=== PATIENT | female | born 1975 | race Caucasian/White ===

== ENCOUNTER 2018-04-06 12:15 | Observation (INO) | payer OTHER ==
[~2018-04-06] VITALS: Ht 165.1 cm; Wt 83.6 kg
[2018-04-06 12:39] VITALS: BP 156/100
[2018-04-06 12:55] LABS: BASOPHILS # (AUTO) 0.04 x10^3/uL (0-0.1); BASOPHILS % (AUTO) 0 % (0-1); EOSINOPHILS # (AUTO) 0.15 x10^3/uL (0-0.4); EOSINOPHILS % (AUTO) 1 % (1-7); LYMPHOCYTES # (AUTO) 1.59 x10^3/uL (1-3.4); LYMPHOCYTES % (AUTO) 14 % (22-44); MD NO; MEAN CORPUSCULAR HEMOGLOBIN 30.5 pg (27.0-34.8); MEAN CORPUSCULAR HGB CONC 33.6 g/dL (32.4-35.8); MONOCYTES # (AUTO) 0.96 x10^3/uL (0.2-0.8); MONOCYTES % (AUTO) 8 % (2-9); NEUTROPHILS # (AUTO) 8.84 x10^3/uL (1.8-6.8); NEUTROPHILS % (AUTO) 76 % (42-75); PLATELET COUNT 226 x10^3/uL (130-400); RED BLOOD COUNT 4.25 x10^6/uL (3.82-5.3); RED CELL DISTRIBUTION WIDTH 14.1 % (9.6-15.2)
[2018-04-06 13:05] LABS: ALBUMIN 2.6 g/dL (3.4-5.0); ANION GAP 10 mmol/L (5-15); CALCIUM 8.9 mg/dL (8.5-10.1); CHLORIDE 107 mmol/L (98-107)
[2018-04-06 13:07] LABS: MICROSCOPIC INDICATED
[2018-04-06 13:08] LABS: ALANINE AMINOTRANSFERASE 16 U/L (12-78); ALKALINE PHOSPHATASE 119 U/L (45-117); BILIRUBIN,TOTAL 0.3 mg/dL (0.2-1.0); CREATININE 0.57 mg/dL (0.55-1.02); TOTAL PROTEIN 7.1 g/dL (6.4-8.2)
[2018-04-06] MEDS ORDERED: ACETAMINOPHEN 325 MG TABLET ONE (13:08)
[2018-04-06 13:11] LABS: BILIRUBIN, DIRECT < 0.1 mg/dL (0.1-0.2)
[2018-04-06 13:22] LABS: CREATININE,URINE RANDOM 38.4 mg/dL
[2018-04-06] MEDS ORDERED: ACETAMINOPHEN 325 MG TABLET PO PRN (13:30)
[2018-04-06] MEDS ORDERED: LABETALOL 200 MG TABLET ONE (14:19)
[2018-04-06] MEDS ORDERED: BETAMETHASONE 6 MG/ML, 5ML IM ONE (14:19)
[2018-04-06] MEDS: BETAMETHASONE 6 MG/ML, 5ML IM SCH (14:25)
[2018-04-06] MEDS ORDERED: LABETALOL 200 MG TABLET PO ONE (14:30)
[2018-04-06] MEDS ORDERED: PREN-3 PO (16:16)
[2018-04-06] MEDS ORDERED: NIFE10CA PO (16:16)
[2018-04-06] MEDS ORDERED: niFEDipine ER 60 MG TABLET.ER PO ONE ×3 (18:30→22:00)
[2018-04-07] MEDS ORDERED: CETIRIZINE 10 MG TABLET HOMEMEDPO SCH (09:00)
[2018-04-07 14:25] LABS: CREATININE CLEARANCE,URINE 141.8 (70.0-140.0); TOTAL PROTEIN 24HR,URINE 233 mg/24hrs (0-149); TOTAL VOLUME 24HRS,URINE 4650 mL
[2018-04-07] MEDS: BETAMETHASONE 6 MG/ML, 5ML IM SCH (14:30)
[2018-04-07] MEDS ORDERED: NIFE60TA2 PO (14:48)
== END 2018-04-07 15:18 | disposition home or self-care (01) ==
LOC: LDOP 12:15 → LDIP 14:14
PROVIDERS: ADMIT Obstetrics & Gynecology; ATTEND Obstetrics & Gynecology
DX: O16.3 Unspecified maternal hypertension, third trimester (principal); O99.513 Diseases of the respiratory system complicating pregnancy, third trimester; J45.909 Unspecified asthma, uncomplicated; O09.523 Supervision of elderly multigravida, third trimester; Z80.3 Family history of malignant neoplasm of breast; Z82.49 Family history of ischemic heart disease and other diseases of the circulatory system; Z83.3 Family history of diabetes mellitus; Z3A.36 36 weeks gestation of pregnancy
CPT/HCPCS: 36415; 59025; 80053; 81001; 81050; 82248; 82570; 82575; 84156; 84550; 85025; 96372; G0378; J0702

== ENCOUNTER 2018-04-22 08:12 | Inpatient (IN) | payer OTHER ==
[~2018-04-22] VITALS: Ht 165.1 cm; Wt 84.0 kg
[~2018-04-22 08:12] MED LIST: NIFE10CA PO; NIFE60TA2 PO; PREN-3 PO
[2018-04-22] MEDS ORDERED: OXYTOCIN 30U/ 0.9% NaCL 500ML 500 ML IV PRN (21:50)
[2018-04-22] MEDS ORDERED: OXYTOCIN 30U/ 0.9% NaCL 500ML 500 ML IV ONE (21:50)
[2018-04-22] MEDS ORDERED: ONDANSETRON 2MG/ML, 2ML IVPush PRN (22:00)
[2018-04-22] MEDS ORDERED: FENTANYL PF 100 MCG/2ML IV PRN (22:00)
[2018-04-22] MEDS ORDERED: FENTANYL PF 100 MCG/2ML IVPush PRN (22:00)
[2018-04-22] MEDS ORDERED: PLEASE ENTER HEIGHT AND WEIGHT MC SCH (22:00)
[2018-04-22] MEDS ORDERED: MISOPROSTOL 25 MCG TABLET VG PRN (22:00)
[2018-04-22] MEDS ORDERED: TERBUTALINE 1 MG/ML, 1ML IVPush PRN (22:00)
[2018-04-22] MEDS: LACTATED RINGERS 1,000 ML IV SCH (22:14)
[2018-04-22 22:27] LABS: BASOPHILS # (AUTO) 0.11 x10^3/uL (0-0.1); BASOPHILS % (AUTO) 1 % (0-1); EOSINOPHILS % (AUTO) 1 % (1-7); LYMPHOCYTES # (AUTO) 2.06 x10^3/uL (1-3.4); LYMPHOCYTES % (AUTO) 15 % (22-44); MD NO; MEAN CORPUSCULAR HEMOGLOBIN 30.7 pg (27.0-34.8); MEAN CORPUSCULAR HGB CONC 33.3 g/dL (32.4-35.8); MEAN PLATELET VOLUME 10.8 fL (7.4-10.4); MONOCYTES # (AUTO) 1.28 x10^3/uL (0.2-0.8); MONOCYTES % (AUTO) 9 % (2-9); NEUTROPHILS # (AUTO) 10.66 x10^3/uL (1.8-6.8); NEUTROPHILS % (AUTO) 75 % (42-75); PLATELET COUNT 247 x10^3/uL (130-400); RED BLOOD COUNT 4.13 x10^6/uL (3.82-5.3); RED CELL DISTRIBUTION WIDTH 13.8 % (9.6-15.2)
[2018-04-22 22:39] LABS: ALANINE AMINOTRANSFERASE 13 U/L (12-78); ALBUMIN 2.5 g/dL (3.4-5.0); ANION GAP 10 mmol/L (5-15); CALCIUM 9.2 mg/dL (8.5-10.1); CHLORIDE 106 mmol/L (98-107); CREATININE 0.67 mg/dL (0.55-1.02)
[2018-04-22 22:41] LABS: ALKALINE PHOSPHATASE 130 U/L (45-117); BILIRUBIN, DIRECT < 0.1 mg/dL (0.1-0.2); BILIRUBIN,TOTAL 0.3 mg/dL (0.2-1.0); TOTAL PROTEIN 6.6 g/dL (6.4-8.2)
[2018-04-22] MEDS ORDERED: OXYTOCIN 30U/ 0.9% NaCL 500ML 500 ML ONE (22:52)
[2018-04-23] MEDS ORDERED: FENTANYL PF 100 MCG/2ML ONE (05:21)
[2018-04-23] MEDS: LACTATED RINGERS 1,000 ML IV SCH ×2 (06:21→07:15)
[2018-04-23] MEDS ORDERED: FENTANYL/BUPIV./NS/PF 250 ML EPIDCONT SCH ×2 (06:28→07:39)
[2018-04-23] MEDS ORDERED: BUPIVACAINE 0.25% ONE (07:05)
[2018-04-23] MEDS ORDERED: RHOGAM FROM BLOOD BANK 1 NOTE EA IM/IV ONE (07:30)
[2018-04-23] MEDS ORDERED: DIPH,PERTUSS(ACELL),TET VAC/PF NC IM-VACC PRN (07:30)
[2018-04-23] MEDS ORDERED: MEASLES,MUMPS&RUBELLA VACC/PF 0.5 ML SQ PRN (07:30)
[2018-04-23] MEDS ORDERED: ONDANSETRON 2MG/ML, 2ML IV PRN (07:30)
[2018-04-23] MEDS ORDERED: CALCIUM CARBONATE 500 MG TAB.CHEW PO PRN (07:30)
[2018-04-23] MEDS ORDERED: MISOPROSTOL 200 MCG TABLET PR PRN (07:30)
[2018-04-23] MEDS ORDERED: OXYcodone/APAP 5/325MG TABLET PO PRN ×2 (07:30)
[2018-04-23] MEDS ORDERED: MAGNESIUM HYDROXIDE 8%, 30ML UDC PO PRN (07:30)
[2018-04-23] MEDS ORDERED: ACETAMINOPHEN 325 MG TABLET PO PRN ×2 (07:30)
[2018-04-23] MEDS ORDERED: LACTATED RINGERS 1,000 ML IV SCH (07:39)
[2018-04-23] MEDS ORDERED: LACTATED RINGERS 1,000 ML IVBOLUS PRN (08:00)
[2018-04-23] MEDS: PRENATAL VIT/IRON/FA 1 EACH TABLET PO SCH (09:00)
[2018-04-23] MEDS ORDERED: TERBUTALINE 1 MG/ML, 1ML ONE (09:02)
[2018-04-23] MEDS: D5%-LACTATED RINGERS 1,000 ML IV SCH ×2 (10:06→16:09)
[2018-04-23] MEDS ORDERED: LACTATED RINGERS 1,000 ML INTUTE PRN (11:00)
[2018-04-23] MEDS ORDERED: LACTATED RINGERS 1,000 ML INTUTE SCH (11:00)
[2018-04-23] MEDS ORDERED: ONDANSETRON 2MG/ML, 2ML ONE (11:25)
[2018-04-23] MEDS ORDERED: IBUPROFEN 600 MG TABLET ONE (12:56)
[2018-04-23] MEDS: IBUPROFEN 600 MG TABLET PO PRN (12:58)
[2018-04-23] MEDS ORDERED: OXYTOCIN 30U/ 0.9% NaCL 500ML 500 ML ONE (14:17)
[2018-04-23] MEDS: OXYTOCIN 30U/ 0.9% NaCL 500ML 500 ML IV SCH ×2 (14:27→17:22)
[2018-04-23 14:45] VITALS: BP 130/88
[2018-04-23 20:00] VITALS: BP 144/96
[2018-04-23] MEDS: DOCUSATE 100 MG CAPSULE PO PRN (20:18)
[2018-04-23 20:42] LABS: MEAN CORPUSCULAR HEMOGLOBIN 30.8 pg (27.0-34.8); MEAN CORPUSCULAR HGB CONC 33.5 g/dL (32.4-35.8); MEAN CORPUSCULAR VOLUME 91.9 fL (80-100); MEAN PLATELET VOLUME 10.7 fL (7.4-10.4); PLATELET COUNT 243 x10^3/uL (130-400); RED BLOOD COUNT 4.02 x10^6/uL (3.82-5.3); RED CELL DISTRIBUTION WIDTH 14.5 % (9.6-15.2)
[2018-04-23 20:59] LABS: BASOPHILS # (AUTO) 0.01 x10^3/uL (0-0.1); BASOPHILS % (AUTO) 0 % (0-1); EOSINOPHILS # (AUTO) 0.02 x10^3/uL (0-0.4); EOSINOPHILS % (AUTO) 0 % (1-7); LYMPHOCYTES # (AUTO) 2.38 x10^3/uL (1-3.4); LYMPHOCYTES % (AUTO) 9 % (22-44); MD SCAN; MONOCYTES # (AUTO) 1.82 x10^3/uL (0.2-0.8); MONOCYTES % (AUTO) 7 % (2-9); NEUTROPHILS # (AUTO) 21.62 x10^3/uL (1.8-6.8); NEUTROPHILS % (AUTO) 84 % (42-75)
[2018-04-23] MEDS ORDERED: niFEDipine ER 60 MG TABLET.ER PO SCH ×2 (21:00)
[2018-04-24 01:10] VITALS: BP 119/76
[2018-04-24 01:29] VITALS: BP 114/76
[2018-04-24] MEDS: D5%-LACTATED RINGERS 1,000 ML IV SCH (02:04)
[2018-04-24] MEDS: OXYTOCIN 30U/ 0.9% NaCL 500ML 500 ML IV SCH (03:22)
[2018-04-24 04:17] VITALS: BP 123/72
[2018-04-24 09:00] VITALS: BP 136/91
[2018-04-24] MEDS: PRENATAL VIT/IRON/FA 1 EACH TABLET PO SCH (09:00)
[2018-04-24] MEDS: DOCUSATE 100 MG CAPSULE PO PRN (09:16)
[2018-04-24] MEDS: IBUPROFEN 600 MG TABLET PO PRN (09:16)
== END 2018-04-24 16:00 | disposition home or self-care (01) | DRG 807 ==
LOC: LDIP 21:12 → 2NW 04-23 14:41
PROVIDERS: ADMIT Obstetrics & Gynecology; ATTEND Obstetrics & Gynecology
PROC: 10E0XZZ Delivery of Products of Conception, External Approach (ICD-10-PCS; principal; 2018-04-23)
PROC: 10907ZC Drainage of Amniotic Fluid, Therapeutic from Products of Conception, Via Natural or Artificial Opening (ICD-10-PCS; 2018-04-23)
PROC: 3E0R3BZ Introduction of Anesthetic Agent into Spinal Canal, Percutaneous Approach (ICD-10-PCS; 2018-04-23)
PROC: 00HU33Z Insertion of Infusion Device into Spinal Canal, Percutaneous Approach (ICD-10-PCS; 2018-04-23)
DX: O77.0 Labor and delivery complicated by meconium in amniotic fluid (principal); Z37.0 Single live birth; O16.4 Unspecified maternal hypertension, complicating childbirth; O69.1XX0 Labor and delivery complicated by cord around neck, with compression, not applicable or unspecified; Z3A.38 38 weeks gestation of pregnancy
CPT/HCPCS: 36415; J2790; J7121; 80053; 82248; 82803; 84550; 85025; 85461; 86850; 86900; G0378; J2405; J3010; J3490; J2590; J7120

== ENCOUNTER → 2018-09-18 | Outpatient (CLI) | payer OTHER | END | disposition home or self-care (01) | LOC: CFH 08:00 | PROVIDERS: ATTEND Obstetrics & Gynecology | DX: Z12.31 Encounter for screening mammogram for malignant neoplasm of breast (principal) | CPT/HCPCS: 77063; 77067 ==

== ENCOUNTER → 2018-10-14 | Outpatient (CLI) | payer OTHER | END | disposition home or self-care (01) | LOC: CFH 07:36 | PROVIDERS: ATTEND Obstetrics & Gynecology | DX: N65.1 Disproportion of reconstructed breast (principal) | CPT/HCPCS: 77065 ==

== ENCOUNTER 2021-03-06 08:45 | Emergency (ER) | payer OTHER ==
[~2021-03-06] VITALS: Ht 165.1 cm; Wt 83.4 kg
[2021-03-06] MEDS ORDERED: ADVAIR INH (09:49)
[2021-03-06] MEDS ORDERED: BENA5TAB3 PO (09:49)
--- NOTE | 2021-03-06 10:00 | NUR ---
PT SITTING UP IN [place], NO S/S OF DISTRESS. HAS SMILE ASYMMETRY WITH L SIDED DROOP AND L EYELID WEAKNESS/DROOP. NO OTHER SYMTPOMS. 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
[2021-03-06 10:15] VITALS: BP 137/89
--- NOTE | 2021-03-06 11:10 | NUR ---
D/C INSTRUCTIONS, MEDS & F/U APPT RV'WD WITH PT, SHE VERBALIZES UNDERSTANDING. RX GIVEN X2. PT AMBULATED OUT OF ED WITH SPOUSE WITHOUT DIFFICULTY.
== END 2021-03-06 11:11 | disposition home or self-care (01) ==
LOC: ED 11:05
DX: G51.0 Bell's palsy (principal)
CPT/HCPCS: 99283